=== PATIENT | male | born 2000 | race Caucasian/White ===

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

== ENCOUNTER 2021-04-26 11:24 | Emergency (ER) | payer OTHER ==
[~2021-04-26] VITALS: Ht 180.3 cm; Wt 158.8 kg
[2021-04-26] MEDS ORDERED: SYNTHROID50 MCG (11:51)
[2021-04-26] MEDS ORDERED: AMOX1TAB5 PO (14:42)
== END 2021-04-26 14:58 | disposition home or self-care (01) ==
LOC: EMR PED 11:24
DX: L60.0 Ingrowing nail (principal)

== ENCOUNTER 2024-09-04 12:44 | Emergency (ER) | payer OTHER ==
[~2024-09-04] VITALS: Ht 177.8 cm; Wt 160.1 kg
[~2024-09-04 12:44] MED LIST changes: +AMOX1TAB5 PO; +SYNTHROID50 MCG
[2024-09-04] MEDS ORDERED: GUAIFENESIN/DEXTROMETHORPHAN 10ML BLIST.PACK PO ONE (16:15)
[2024-09-04] MEDS ORDERED: CETIRIZINE HCL 5 MG/5 ML ML PO ONE (16:15)
[2024-09-04 16:41] LABS: HEMATOCRIT 45.7 % (39.0-48.0); HEMOGLOBIN 15.1 g/dL (13-16.00); MEAN CELL VOLUME 84.6 fL (80.0-100.00); MEAN CORPUSCULAR HEMOGLOBIN 27.9 pg (27.00-32.0); MEAN CORPUSCULAR HGB CONC 32.9 g/dl (32.0-36.0); PLATELET COUNT 253 K/uL (150-450); RED CELL DISTRIBUTION WIDTH 14.3 % (11.5-14.5)
[2024-09-04] MEDS ORDERED: OSEL75CA PO (19:01)
[2024-09-04] MEDS ORDERED: QC TUSSIN DM L118 ML PO (19:01)
[2024-09-04] MEDS ORDERED: OSELTAMIVIR PHOSPHATE 75 MG CAPSULE PO ONE (19:15)
== END 2024-09-04 19:21 ==
LOC: ER 12:46
PROVIDERS: Nurse Practitioner Family
DX: J10.1 Influenza due to other identified influenza virus with other respiratory manifestations (principal); E03.8 Other specified hypothyroidism; J32.9 Chronic sinusitis, unspecified